=== PATIENT | female | born 1980 | race Caucasian/White ===

== ENCOUNTER → 2020-11-27 | Outpatient (CLI) | payer OTHER ==
--- NOTE | 2020-11-27 13:47 | RAD ---
EXAM: Cervical spine, 5 views. HISTORY: Pain. COMPARISON: None. FINDINGS: 5 views of the cervical spine are obtained. There is mild cervical kyphosis. There is no li sthesis. The vertebral bodies are normal in height and the disc spaces are preserved. IMPRESSION: No acute osseous finding. Electronically signed by: Nelsy Flores MD (11/27/2020 1:44 PM) [id number]
== END ==
LOC: DXRAD 12:58
PROVIDERS: ATTEND Psychiatry & Neurology Neurology
DX: M40.292 Other kyphosis, cervical region (principal)
CPT/HCPCS: 72050